=== PATIENT | male | born 1990 | race Caucasian/White ===

== ENCOUNTER 2024-07-02 21:58 | Emergency (ER) | payer OTHER, BC, SELFPAY ==
[2024-07-02] VITALS (19 sets, daily range): BP systolic 167–201; BP diastolic 79–131; PULSE 76–92; RESP 14–27; O2SAT 93–98
--- NOTE | 2024-07-02 22:15 | RT.EKG_ITS ---
APPROVED REPORT Exam: Resting ECG Reason for Exam: chest discomfort Patient Location: E HR:82 bpm ECG Measurements Heart Rate 82 AXIS AK 145 P 57 QRSd 97 QRS 44 QT 378 T 3 QTc 441 Conclusion Sinus rhythm...normal P axis, V-rate 60- 99 Consider anteroseptal infarct...Q >30mS, dimin R, V1-V2 Physician: inverted t wave in III, no other changes
--- NOTE | 2024-07-02 22:27 | W.ED.GENAD ---
Discharge Plan Disposition Patient Disposition: Home Condition: Good Discharge Details Clinical Impression: Hyperglycemia, Diabetes mellitus, Pneumonia Primary Care Provider: Yael,Local ED Provider: Cristhian Villareal Home Meds and New Rx's Prescriptions: New metformin 500 mg tablet 500 mg PO BID Qty: 60 1RF azithromycin 250 mg tablet 250 mg PO DAILY 4 Days Qty: 4 0RF Rx Instructions: start on day 2 of therapy sucralfate [Carafate] 1 gram tablet 1 g PO BID Qty: 60 0RF omeprazole 20 mg capsule,delayed release(DR/EC) 20 mg PO DAILY Qty: 60 0RF (DME) diabetic supplies, [employer]. Misc See Rx Instructions .Route Qty: 25 0RF Rx Instructions: As directed. Requires test strips, glucometer, fingerstick needles. No Action allopurinol 100 mg tablet 100 mg PO DAILY Zyrtec 10 mg capsule 20 mg PO DAILY duloxetine 20 mg capsule,delayed release(DR/EC) 20 mg PO DAILY Discharge Instructions Instructions: Atypical Pneumonia (Mycoplasma and Viral) (DC), Diabetes and diet Additional Instructions: At this time your workup shows evidence of diabetes. Your hemoglobin A1c is notably elevated at 9.9. Your sugar has come down with insulin, however you do require continued medications outpatient. We will start you on metformin at 500 mg twice daily. Please do your best to adjust your diet, avoiding carbohydrates, sweets, or significant sugars. Additionally for your upset stomach we will start you on omeprazole and Carafate to help with a suspected potential mild stomach ulcers. On the ultrasound there was concern for potential mild pneumonia. Please take the azithromycin as prescribed to help with this. You will require close follow-up with your primary care provider for reassessment of your labs in the next 1 to 2 weeks with the metformin therapy. You may still require insulin, but this will have to be determined based on your response to the metformin and diet changes. Additionally you are hypertensive, and if your blood pressure remains elevated you would benefit from being started on an antihypertensive agent. Discharge Data Discharge Date/Time-TO BE ENTERED AT DEPARTURE: 07/03/24 01:23 HPI General Date/Time Provider Initiated Documentation: 07/02/24 22:12. HPI Narrative: This is a pleasant 33-year-old male with a past medical history of gout, mild allergies, peripheral neuropathy secondary to service in the , who presents today for not feeling well, but last 2 weeks he has had persistent episodic nausea, vomiting, cough, he was flu positive for a time, then today while still not feeling well at work his blood sugar was checked by colleague and noted to be 577. He had no history of diabetes in the past. Family history for diabetes is only positive in second-degree relatives. He denies any headache or chest pain. He denies any focal abdominal pain. He denies any significant dietary or medication changes. No other complaints at this time. He has been drinking a notable amount of water as of late, and has been urinating frequently. Related Data Home Medications ?Medication ?Instructions ?Recorded ?Confirmed allopurinol 100 mg tablet 100 mg PO DAILY 07/02/24 07/02/24 cetirizine 10 mg capsule (Zyrtec) 20 mg PO DAILY 07/02/24 07/02/24 duloxetine 20 mg capsule,delayed 20 mg PO DAILY 07/02/24 07/02/24 release azithromycin 250 mg tablet 250 mg PO DAILY 4 days #4 tabs 07/03/24 diabetic supplies, [employer]. #25 ea 07/03/24 metformin 500 mg tablet 500 mg PO BID #60 tabs 07/03/24 omeprazole 20 mg capsule,delayed 20 mg PO DAILY #60 caps 07/03/24 release sucralfate 1 gram tablet (Carafate) 1 g PO BID #60 tabs 07/03/24 Previous Rx's ?Medication ?Instructions ?Recorded azithromycin 250 mg tablet 250 mg PO DAILY 4 days #4 tabs 07/03/24 diabetic supplies, [employer]. #25 ea 07/03/24 metformin 500 mg tablet 500 mg PO BID #60 tabs 07/03/24 omeprazole 20 mg capsule,delayed 20 mg PO DAILY #60 caps 07/03/24 release sucralfate 1 gram tablet (Carafate) 1 g PO BID #60 tabs 07/03/24 Allergies Allergy/AdvReac Type Severity Reaction Status Date / Time No Known Allergies Allergy Unverified 07/02/24 22:14 General Stated Complaint: Diabetes JOSE: 3 Exam Narrative Exam Narrative: 1.Const: Well-nourished, Well-developed, appearing stated age 2.Eyes: PERRL, no conjunctival injection, and symmetrical lids. 3.ENT: Atraumatic external nose and ears. Dry MM. Neck: Symmetric, trachea midline, No thyromegaly. 4.CVS: +S1/S2, Peripheral pulses 2+ and equal in all extremities. Brisk capillary refill in all extremities. 5.RESP: Unlabored respiratory effort. Clear to auscultation bilaterally. No wheezes rales or rhonchi 6.GI: Soft, Nontender/Nondistended, No hepatosplenomegaly. No guarding or rebound. 7.MSK: Normocephalic/Atraumatic, Extremities w/o deformity or ttp No cyanosis or clubbing, Normal movement of all extremities. Feet demonstrate capillary refill at about 2 to 3 seconds in all toes. Pulses are intact. 8.Skin: Warm, Dry. No rashes or lesions. 9.Neuro: hand crown pouncer II-XII grossly intact. Sensation grossly intact except for in his feet which appears to be chronic, no focal neurologic deficits. 10.Psych: (AAO) x3. Appropriate mood and affect Course Vital Signs Vital signs: Vital Signs Pulse 92 H 07/02/24 22:01 Respiratory Rate 26 H 07/02/24 22:01 Blood Pressure 196/131 H 07/02/24 22:01 Pulse Oximetry 93 07/02/24 22:01 Pulse 92 H 07/02/24 22:01 Respiratory Rate 26 H 07/02/24 22:01 Blood Pressure 196/131 H 07/02/24 22:01 Blood Pressure Position Sitting 07/02/24 22:01 Pulse Oximetry 93 07/02/24 22:01 Oxygen Delivery Method Room Air 07/02/24 22:01 Oxygen Flow Rate 0 07/02/24 22:01 Pain Level 0 07/02/24 22:01 Medical Decision Making This is a pleasant 33-year-old male with a past medical history of gout, mild allergies, peripheral neuropathy secondary to service in the , who presents today for not feeling well, but last 2 weeks he has had persistent episodic nausea, vomiting, cough, he was flu positive for a time, then today while still not feeling well at work his blood sugar was checked by colleague and noted to be 577. He had no history of diabetes in the past. Family history for diabetes is only positive in second-degree relatives. He denies any headache or chest pain. He denies any focal abdominal pain. He denies any significant dietary or medication changes. No other complaints at this time. He has been drinking a notable amount of water as of late, and has been urinating frequently. Physical exam demonstrates dry mucous membranes, nontender abdomen. No focal neurologic deficits. Concern for new onset type 2 diabetes. HHNK or DKA is on the differential as well. Pneumonia is certainly of concern as his pancreatitis. Will monitor for these and closely reassess. 1:30 AM Laboratory workup is returned, no white count or bandemia. D-dimer is normal suggesting no evidence of PE. EKG stable aside for Q wave. VBG demonstrates very mild acidosis, but it appears to be respiratory base with a pCO2 of 53. Bicarb is normal. No significant anion gap. Blood sugar is 656. Troponins are normal. Lipase normal. Hemoglobin A1c is high at 9.9. The patient's symptoms do not appear to be consistent with diabetic ketoacidosis. There are ketones noted on the urine, but there is no odor of ketones on his breath, he does not have an elevated anion gap, his bicarb level is normal. Additionally the patient's influenza test remains positive. I suspect that this is more of a reflection of a hyperosmolar state in conjunction with dehydration secondary to persistent micturition from hyperglycemia. We do not have the ability to get a beta hydroxybutyrate here for further differentiation. Patient shows no signs of coma status, or altered mental status. He was rehydrated initially with 2 L, third liter has subsequently been given. We did give oral potassium 40 mEq to maintain potassium stability. 20 units of subcu insulin were administered and over the course of the next few hours the patient's blood sugar transition from the 500s down to the 400s. He tolerated this well. Chest x-ray was read as negative by radiology, however with his persistent cough it was concern for atypical pneumonia. Bedside ultrasound was performed and showed evidence of a small area of infiltrate in the lungs in the left upper and right lower lung. Will treat this patient with amoxicillin for atypical pneumonia. We will start the patient on metformin as his clinical symptomatology and history appears to be more consistent with a type II diabetic rather than a type I. However we will recommend close follow-up with his PCP for reassessment and frequent blood draws to continue to monitor his A1c and sugar levels. Will send prescription for home test strips and glucometer. I had a long discussion of all this with the patient as well as his . They agree with the plan. Additionally with his chronic nausea and achiness in the epigastric region, we will give Carafate and omeprazole for home use out of concern for potential gastric ulcer. I have extensively reviewed the treatment plan and discharge instructions with the patient. I have addressed all patient concerns at this time. The patient was made aware of what symptoms to monitor for that would warrant a return to the emergency department. Discussed the plan with the patient, they demonstrate verbal understanding and agreement with our assessment and plan at this time. The documentation in this chart was dictated using [employer] dictation software. Please excuse any dictation errors. Quality:SDOH Health Related Social Needs: No Data to Display PFSH All Active Problems (Updated 07/03/24 @ 00:35 by Cristhian Villareal DO) Pneumonia (Acute) Diabetes mellitus (Chronic) Hyperglycemia (Acute) Social History Smoking/Tobacco Use Status: Current every day Tobacco Type: smokeless tobacco Smoking risk assessment performed?: Yes Alcohol Intake: current Alcohol Intake frequency: a few times a week Alcohol type: beer and hard liquor Drug use: Never Substance use type: does not use Housing: house Do you feel safe at home: Yes Do you feel safe in your relationship?: Yes POCUS Exam (ED) Limited Thoracic Lung Exam DATE OF EXAM: 07/03/24 TIME OF EXAM: 00:34 PROVIDER THAT PERFORMED THE STUDY: Cristhian Villareal IS THIS A REPEAT EXAM DURING THIS ENCOUNTER: No REASON FOR EXAM: Pneumonia VISUALIZED STRUCTURES: right lateral, left lateral, right posterior and left posterior PERTINENT FINDINGS/IMPRESSION: Pneumonia Exam complete
[2024-07-02 22:29] LABS: BE (Venous) -2 mmol/L (-2-3); HCO3 (Venous) 25 mmol/L (23-28); O2 Sat (Venous) 37 %; TCO2 (Venous) 22 mmol/L (24-29); pCO2 (Venous) 53 mmHg (41-51); pH (Venous) 7.28 (7.31-7.41); pO2 (Venous) 23 mmHg
[2024-07-02 22:30] LABS: Abs Immature Grans 0.05 10^3/uL (0.0-0.06); Absolute Basophil Count 0.06 10^3/uL (0.0-0.2); Absolute Eosinophil Count 0.14 10^3/uL (0.0-0.7); Absolute Lymphocyte Count 2.47 10^3/uL (1.2-3.4); Absolute Monocyte Count 0.53 10^3/uL (0.1-0.8); Basophils % 0.8 %; Eosinophils % 1.9 %; HCT 50.7 % (40.0-50.0); Immature Grans % 0.7 %; Lymphocytes % 33.2 %; MCHC 35.5 % (32.0-36.0); MCV 90 fL (80-95); Monocytes % 7.1 %; Neutrophils % 56.3 %; Platelet Count 278 10^3/uL (130-400); RBC 5.62 10^6/uL (4.36-5.78); RDW 10.9 % (11.8-14.1); RDW-SD 36.1 fL; WBC 7.45 10^3/uL (4.4-10.8)
[2024-07-02] MEDS: Lactated Ringers 1,000 ML 1000 ML IV ×2 (22:30→23:35)
[2024-07-02 22:34] LABS: Bilirubin Negative (Negative); Blood Negative (Negative); Clarity Clear (Clear); Glucose 500 mg/dL (Negative); Ketones 80 mg/dL (Negative); Leukocyte Esterase Negative (Negative); Nitrite Negative (Negative); Urobilinogen 0.2 mg/dL (Up to 0.2); pH 5.5 (5-8)
[2024-07-02 22:41] LABS: Magnesium 1.9 mg/dL (1.8-2.4)
[2024-07-02 22:43] LABS: Hemoglobin A1C 9.9 % (<5.7)
--- NOTE | 2024-07-02 22:46 | DI.RAD_ITS ---
Exam(s) XR PORTABLE CHEST AP EXAM: XR PORTABLE CHEST AP CLINICAL HISTORY: cough, eval for pneumonia. TECHNIQUE: 2D digital imaging was performed. COMPARISON: No exams were available for comparison FINDINGS: Single AP portable view. Heart size is upper normal. The mediastinum is not widened. Lungs are clear. No infiltrates nor obvious pleural effusions. IMPRESSION: No acute pulmonary findings on this single AP portable view of the chest. DATA REPOSITORY: RADIATION DOSE DELIVERED:
[2024-07-02 22:50] LABS: ALT 67 U/L (16-63); AST 22 U/L (15-37); Albumin 4.6 g/dL (3.4-5.0); Alkaline Phosphatase 143 U/L (46-116); Anion Gap 13.5 mmol/L (3-11); BUN 12 mg/dL (7-18); Bilirubin, Total 1.32 mg/dL (0.2-1.0); CO2 26.5 mmol/L (21.0-32.0); CREATININE 1.4 mg/dL (0.70-1.30); Calcium 9.7 mg/dL (8.5-10.1); Chloride 93 mmol/L (98-107); Estimated GFR 68.91 (mL/min/1.73m2); Lipase 44 U/L (<78); Potassium 3.8 mmol/L (3.5-5.1); Sodium 133 mmol/L (136-145); Total Protein 8.7 g/dL (6.4-8.2)
[2024-07-02 22:53] LABS: Glucose 656 mg/dL (74-106)
[2024-07-02 23:03] LABS: D-Dimer 228 ng/mlFEU (<500)
--- NOTE | 2024-07-02 23:07 | DI.VRAD_ITS ---
PROCEDURE INFORMATION: Exam: XR Chest Exam date and time: 07/02/2024 10:46 PM Age: 33 years old Clinical indication: Cough, pneumonia TECHNIQUE: Imaging protocol: Radiologic exam of the chest. Views: 1 view. COMPARISON: No relevant prior studies available. FINDINGS: Lungs: Unremarkable. No consolidation. Pleural spaces: Unremarkable. No pleural effusion. No pneumothorax. Heart/Mediastinum: Unremarkable. No cardiomegaly. Bones/joints: Unremarkable. IMPRESSION: No acute findings. Dictated and Authenticated by: Elkin Scott MD. Orderin Dionna Morrow MD
[2024-07-02 23:08] LABS: COVID-19 PCR Negative (Negative); Influenza A PCR Positive (Negative); Influenza B PCR Negative (Negative); RSV PCR Negative (Negative)
[2024-07-02 23:09] LABS: Source Nasopharynx
[2024-07-02] MEDS: Normal Saline 1,000 ML 1000 ML IV (23:10)
[2024-07-02] MEDS: Insulin REGULAR-Human 100 UNITS/ML UNIT 20 UNITS SC (23:16)
[2024-07-02 23:21] LABS: Troponin I 6 ng/L (<or=76)
[2024-07-02] MEDS: Potassium Chloride 20 MEQ TABCR 40 MEQ PO (23:31)
[2024-07-02 23:43] LABS: Troponin I 6 ng/L (<or=76)
[2024-07-03] VITALS (11 sets, daily range): BP systolic 162–178; BP diastolic 82–104; PULSE 74–89; RESP 14–22; O2SAT 94–99
[2024-07-03 00:07] LABS: ALT 54 U/L (16-63); AST 22 U/L (15-37); Albumin 3.4 g/dL (3.4-5.0); Alkaline Phosphatase 106 U/L (46-116); Anion Gap 10.2 mmol/L (3-11); BUN 12 mg/dL (7-18); Bilirubin, Total 1.15 mg/dL (0.2-1.0); CO2 24.8 mmol/L (21.0-32.0); CREATININE 1.2 mg/dL (0.70-1.30); Calcium 8.5 mg/dL (8.5-10.1); Chloride 100 mmol/L (98-107); Estimated GFR 82.92 (mL/min/1.73m2); Potassium 4.5 mmol/L (3.5-5.1); Sodium 135 mmol/L (136-145); Total Protein 6.6 g/dL (6.4-8.2)
[2024-07-03 00:11] LABS: Glucose 534 mg/dL (74-106)
[2024-07-03] MEDS: AZITHROMYCIN 500 MG in Normal Saline 250 ML IVPB (00:41)
[2024-07-03] MEDS: Sucralfate 1 GM TAB PO (00:41)
[2024-07-03] MEDS: Pantoprazole 40 MG VIAL IVP (00:41)
[2024-07-03 00:46] LABS: ALT 53 U/L (16-63); AST 22 U/L (15-37); Albumin 3.4 g/dL (3.4-5.0); Alkaline Phosphatase 109 U/L (46-116); Anion Gap 8.7 mmol/L (3-11); BUN 11 mg/dL (7-18); Bilirubin, Total 1.12 mg/dL (0.2-1.0); CO2 27.3 mmol/L (21.0-32.0); CREATININE 1.1 mg/dL (0.70-1.30); Calcium 8.8 mg/dL (8.5-10.1); Chloride 101 mmol/L (98-107); Estimated GFR 92.04 (mL/min/1.73m2); Glucose 463 mg/dL (74-106); Potassium 4.5 mmol/L (3.5-5.1); Sodium 137 mmol/L (136-145); Total Protein 6.6 g/dL (6.4-8.2)
[2024-07-03] MEDS: Ondansetron 4 MG/2 ML VIAL IVP (01:22)
== END 2024-07-03 01:23 | disposition home or self-care (01) ==
PROVIDERS: Emergency Provider Student in an Organized Health Care Education/Training Program
DX: R73.9 Hyperglycemia, unspecified; J18.9 Pneumonia, unspecified organism; F17.290 Nicotine dependence, other tobacco product, uncomplicated; E11.9 Type 2 diabetes mellitus without complications
CPT/HCPCS: 36415; 76604; 80053; 82805; 83690; 87637; 93005; 96361; 96365; 96375; 99284; 71045; 81003; 83036; 83735; 84484; 85025; 85379; 93010; J0456; J1815; J2405; J2470